=== PATIENT | female | born 2000 | race Two or more races ===

== ENCOUNTER 2025-04-29 22:36 | Emergency (ER) | payer MEDICAID ==
[~2025-04-29] VITALS: Ht 167.6 cm; Wt 61.5 kg
[2025-04-29 22:40] VITALS: O2SAT 100
[2025-04-29] MEDS ORDERED: AMOX-494 MT (22:56)
[2025-04-29] MEDS ORDERED: IBUP-1455 MT (22:56)
[2025-04-29] MEDS ORDERED: KETOROLAC 30MG/ML VIAL IM ONE (23:00)
[2025-04-29] MEDS ORDERED: TOPUD PO (23:09)
[2025-04-29] MEDS: ACETAMINOPHEN 325MG TABLET PO ONE (23:27)
[2025-04-29 23:30] VITALS: BP 125/63; PULSE 74; RESP 18; TEMP 36.7; O2SAT 99
== END 2025-04-29 23:30 | disposition home or self-care (01) ==
LOC: ER 22:36
DX: K08.89 Other specified disorders of teeth and supporting structures (principal)
CPT/HCPCS: 81025; 99283